=== PATIENT | female | born 1955 | race Caucasian/White ===

== ENCOUNTER 2018-06-06 07:03 | Day surgery (SDC) | payer OTHER | END 2018-06-06 11:05 | disposition home or self-care (01) | LOC: CIR.AMB 07:03 | DX: M65.331 Trigger finger, right middle finger (principal) ==

== ENCOUNTER 2021-10-22 09:17 | Outpatient (CLI) | payer OTHER ==
[~2021-10-22 09:17] MED LIST: CANDESARTAN CILE8 MG PO
[2021-10-22] MEDS ORDERED: SIMVASTATIN5 MG PO (09:37)
== END 2021-10-22 09:21 | disposition home or self-care (01) ==
LOC: LAB 09:17
PROVIDERS: ATTEND Orthopaedic Surgery Hand Surgery
DX: Z11.52 Encounter for screening for COVID-19 (principal); Z20.828 Contact with and (suspected) exposure to other viral communicable diseases; Z03.818 Encounter for observation for suspected exposure to other biological agents ruled out

== ENCOUNTER 2021-10-27 06:38 | Day surgery (SDC) | payer OTHER ==
[~2021-10-27 06:38] MED LIST changes: +SIMVASTATIN5 MG PO
== END 2021-10-27 18:17 | disposition home or self-care (01) ==
LOC: CIR.AMB 06:38
PROVIDERS: ATTEND Orthopaedic Surgery Hand Surgery
DX: M65.342 Trigger finger, left ring finger (principal); Z20.822 Contact with and (suspected) exposure to COVID-19

== ENCOUNTER 2025-06-21 06:00 | Day surgery (SDC) | payer OTHER ==
[2025-06-13 10:41] LABS: URINE APPEARANCE Clear; URINE BILIRRUBIN Negative (NEGATIVE); URINE BLOOD Small; URINE COLOR Yellow; URINE GLUCOSE Negative (NEGATIVE); URINE KETONE Trace (NEGATIVE); URINE LEUKOCYTE Negative; URINE NITRATE Negative; URINE PROTEIN Trace (NEGATIVE); URINE UROBILINOGEN 1.0 E.U./dl
[2025-06-13 10:42] LABS: URINE BACTERIA 36.0 uL (0.0-1933); URINE EPITHELIAL CELLS 10.1 uL (0.0-38.8); URINE RBC 149.7 uL (0.0-20.8); URINE WBC 2.4 uL (0.0-23.2)
[2025-06-13 10:56] LABS: URINE CAST 0.14 uL (0.0-1.40)
[2025-06-13 11:11] LABS: BASO % 0.7 % (0.1-1.2); EOS # 0.18 (0.04-0.54); EOS % 1.7 % (0.7-7.0); LYMPH # 4.30 (1.18-3.74); LYMPH % 41.4 % (19.3-53.1); MEAN PLATELET VOLUME 10.50 fl (9.4-12.4); MONO # 0.63 (0.24-0.82); MONO % 6.1 % (4.7-12.5); NEUT # 5.18 (1.56-6.13); NEUT % 49.8 % (34.0-71.1); RED CELL DISTRIBUTION WIDTH 14.7 % (11.6-14.4)
[2025-06-13 11:13] LABS: BUN CREA RATIO 21.0 (7.0-25.0); CREATININE SERUM 0.56 mg/dL (0.55-1.02); GFR 107.65; GLUCOSE FASTING 95.0 mg/dL (65-100); OSMOLALITY SERUM 286.0 MOSM/KG (275-295)
[2025-06-13 11:17] LABS: INR 1.0
[2025-06-13 11:23] VITALS: BP 156/80
[~2025-06-21] VITALS: Ht 157.5 cm; Wt 54.4 kg
[2025-06-21] MEDS ORDERED: LIDOCAINE HCL 1%/EPINEPHRINE 20ML VIAL IJ ONE (08:00)
[2025-06-21] MEDS ORDERED: POVIDONE-IODINE 118 ML BOTT TOP ONE (08:00)
[2025-06-21] MEDS ORDERED: CEFAZOLIN SODIUM 1,000 MG VIAL IV ONE (08:00)
[2025-06-21] MEDS ORDERED: CIPROFLOXACIN HCL 0.175 MG/DR DROPS OTIC ONE (08:00)
[2025-06-21] MEDS ORDERED: CEPHALEXIN500 MG PO (08:28)
== END 2025-06-21 11:10 | disposition home or self-care (01) ==
LOC: CIR.AMB 06:00
PROVIDERS: ATTEND Otolaryngology Otology & Neurotology
DX: H80.91 Unspecified otosclerosis, right ear (principal); H90.11 Conductive hearing loss, unilateral, right ear, with unrestricted hearing on the contralateral side